=== PATIENT | female | born 1965 | race Caucasian/White ===

== ENCOUNTER → 2018-05-23 | Day surgery (SDC) | payer BC ==
[~2018-05-23] VITALS: Ht 149.8 cm; Wt 54.4 kg
[~2018-05-23] MED LIST: FERROUS GLUCON324 MG PO; OMEPRAZOLE40 MG PO
[2018-05-23 07:42] VITALS: BP 129/77
[2018-05-23 10:48] VITALS: BP 111/69
[2018-05-23 11:03] VITALS: BP 122/73
[2018-05-23 11:18] VITALS: BP 129/75
== END | disposition home or self-care (01) ==
LOC: SDC 05-22 13:15
DX: D12.5 Benign neoplasm of sigmoid colon (principal); K64.8 Other hemorrhoids; K29.50 Unspecified chronic gastritis without bleeding; D50.9 Iron deficiency anemia, unspecified; G43.909 Migraine, unspecified, not intractable, without status migrainosus; Z79.899 Other long term (current) drug therapy; Z98.890 Other specified postprocedural states; Z88.8 Allergy status to other drugs, medicaments and biological substances; Z91.048 Other nonmedicinal substance allergy status; Z80.0 Family history of malignant neoplasm of digestive organs; Z83.3 Family history of diabetes mellitus